=== PATIENT | female | born 1950 | race Caucasian/White ===

== ENCOUNTER 2018-11-03 08:31 | Emergency (ER) | payer MEDICARE, OTHER ==
[~2018-11-03] VITALS: Ht 162.6 cm; Wt 62.3 kg
[~2018-11-03 08:31] MED LIST: NOCURR
[2018-11-03] MEDS ORDERED: SIMV-259 PO (08:51)
[2018-11-03] MEDS ORDERED: METF-960 PO (08:51)
[2018-11-03 11:00] VITALS: BP 121/65
== END 2018-11-03 11:03 | disposition home or self-care (01) ==
LOC: EMS 08:33
DX: S09.90XA Unspecified injury of head, initial encounter (principal); M54.2 Cervicalgia; F17.210 Nicotine dependence, cigarettes, uncomplicated; E11.9 Type 2 diabetes mellitus without complications; E78.00 Pure hypercholesterolemia, unspecified; Z04.3 Encounter for examination and observation following other accident; Z79.84 Long term (current) use of oral hypoglycemic drugs; W01.0XXA Fall on same level from slipping, tripping and stumbling without subsequent striking against object, initial encounter; Y93.89 Activity, other specified; Y92.89 Other specified places as the place of occurrence of the external cause; Y99.8 Other external cause status
CPT/HCPCS: 70450; 72125; 72220